=== PATIENT | female | born 2000 ===

== ENCOUNTER 2023-03-12 18:16 | Emergency (ER) | payer BC, SELFPAY ==
[2023-03-12 18:24] VITALS: BP 138/74; PULSE 122; RESP 16; TEMP 37.2; O2SAT 100; BMI 21.6
[2023-03-12 18:57] LABS: Bacteria Urine None Seen; Culture Indicated Urine Cult Not Indicated; RBC Urine 1-5/HPF (0-5/HPF); Squamous Epithelial Cell Urine None Seen (0-5/HPF); WBC Urine None Seen (0-5/HPF)
[2023-03-12 19:05] LABS: Add Manual Diff / Slide Review NO; Basophils Absolute Auto 0 /uL (0-100); Basophils Percent Auto 0.5 % (0-2); Eosinophils Absolute Auto 100 /uL (0-450); Eosinophils Percent Auto 0.6 % (2-4); Hematocrit 39.4 % (36-46); Hemoglobin 13.9 g/dL (12.0-16.0); Lymphocytes Absolute Auto 1600 /uL (1100-4500); Lymphocytes Percent Auto 16.7 % (25-40); Mean Corpuscular HGB Conc 35.2 % (30-36); Mean Corpuscular Hemoglobin 31.2 PG (26-34); Mean Corpuscular Volume 88.5 fL (80-100); Monocytes Absolute Auto 500 /uL (0-900); Monocytes Percent Auto 5.7 % (3-14); Neutrophils Absolute Auto 7100 /uL (1500-7000); Neutrophils Percent Auto 76.5 % (50-75); Platelet Count 297 X10^3/uL (150-400); Red Blood Cell Count 4.45 X10^6/uL (4.0-5.2); Red Cell Distribution Width 12.6 % (11.6-14.8); White Blood Cell Count 9.3 X10^3/uL (4.5-11.0)
[2023-03-12 19:06] LABS: Alanine Aminotransferase 21 IU/L (<35); Albumin 4.8 g/dL (3.5-5.0); Albumin Globulin Ratio 1.3 (1.0-2.8); Alkaline Phosphatase 84 U/L (38-126); Aspartate Aminotransferase 30 IU/L (14-36); BUN Creatinine Ratio 16.9 (6-22); Bilirubin Total 0.6 mg/dL (0.2-1.3); Blood Urea Nitrogen 12 mg/dL (7-17); Calcium 9.3 mg/dL (8.4-10.2); Carbon Dioxide 27 mmol/L (22-32); Chloride 102 mmol/L (98-107); Estimated Glomerular Filt Rate > 60 mL/min (>60); Globulin 3.6 g/dL (1.7-4.1); Glucose 105 mg/dL (70-100); HEMOLYSIS 41 (0-50); Lipase 56 U/L (23-300); Potassium 3.2 mmol/L (3.4-5.1); Sodium 138 mmol/L (137-145); Total Protein 8.4 g/dL (6.3-8.2)
[2023-03-12] MEDS: ACETAMINOPHEN 325 MG TABLET 650 MG PO (20:16)
--- NOTE | 2023-03-12 20:22 | DI.US.S_ITS ---
PROCEDURE: US PELVIC COMPLETE INDICATIONS: CYST; INCREASING PAIN TECHNIQUE: Real-time scanning was performed of the pelvic organs, with image documentation. Additional endovaginal scanning was necessary due to incomplete visualization of the adnexal and endometrial structures by transabdominal scanning. COMPARISON: None. FINDINGS: Uterus: Uterus is anteverted and measures 5.1 x 2.6 x 4.1 cm. Endometrium measures up to 0.9 cm. Ovaries: The right ovary measures 4.6 x 3.5 x 4.2 cm, with a calculated ovarian volume of 35.5 cc. The left ovary measures 1.7 x 2.8 x 1.1 cm, with a calculated ovarian volume of 2.8 cc. The ovaries have a normal sonographic appearance. Less than 12 follicles can be seen in each ovary. No adnexal masses. There is a cyst within the right ovary measuring 3.8 x 4.2 x 2.8 cm with thick internal septations and eccentric nodular soft tissue components or debris. No internal vascularity on color Doppler interrogation. There is patent arterial flow demonstrated within the ovaries bilaterally. Other: There is a small amount of pelvic free fluid which appears within physiologic limits. IMPRESSION: 1. Complex right ovarian cyst measuring up to 4.2 cm with internal septations and eccentric solid nodular components or debris. Recommend follow-up ultrasound in 6 weeks to demonstrate resolution. 2. No definite evidence of ovarian torsion. We strive to produce accurate, complete, and clear reports of imaging services. To assist us in improving patient care, this report was composed using standard report templates and voice recognition software. Therefore, it may contain abnormal punctuation, insertions and/or omissions. Occasional wrong-word or sound-alike substitutions may occur. Though we review the report and make efforts to correct it, we do recommend that the report be read carefully in proper context to recognize any text inaccuracies. Dictated by: Josh Peña M.D. on 03/12/2023 at 22:13 Approved by: Josh Peña M.D. on 03/12/2023 at 22:16
[2023-03-12 21:18] VITALS: BP 135/77; PULSE 95; O2SAT 98
[2023-03-12 21:30] VITALS: BP 128/73; PULSE 94; O2SAT 99
[2023-03-12 22:00] VITALS: BP 130/74; PULSE 99; O2SAT 99
[2023-03-12 22:30] VITALS: BP 131/77; PULSE 83; O2SAT 99
--- NOTE | 2023-03-12 23:10 | ED.FEMALEGU ---
HPI - Female Genitourinary General Chief complaint: Abdominal Pain Stated complaint: poss ovarian cyst/pain/dizzy Time Seen by Provider: 03/12/23 23:09 Source: patient Mode of arrival: Ambulatory History of Present Illness HPI Narrative: Patient is a 22-year-old female who has a history of a right ovarian cyst and depression presenting today with severe right-sided pain. She reports that she is had some ongoing right-sided pain she had an ultrasound about 4 weeks ago with PCP which showed a complicated right ovarian cyst she is worried that it may have ruptured. She got sudden onset doubled over in pain. She took some ibuprofen at home and received Tylenol prior to my evaluation she reports it is feeling a little bit better. No fever chills no flank pain. She is able to walk. Related Data Previous Rx's Medication Instructions Recorded hydrocodone 5 mg-acetaminophen 325 1 tab PO Q6H PRN pain #10 tabs 03/12/23 mg tablet Allergies Allergy/AdvReac Type Severity Reaction Status Date / Time Penicillins Allergy Verified 03/12/23 18:24 Review of Systems Review of Systems ROS Unobtainable: All systems reviewed & are unremarkable except as noted in HPI and below Patient History alcohol intake frequency: holidays/special occasions only Substance Use Type: does not use Exam Initial Vital Signs Initial Vital Signs: Vital Signs Temperature 98.9 F 03/12/23 18:24 Pulse Rate 122 H 03/12/23 18:24 Respiratory Rate 16 03/12/23 18:24 Blood Pressure 138/74 03/12/23 18:24 Pulse Oximetry 100 03/12/23 18:24 Oxygen Delivery Method Room Air 03/12/23 18:24 GENERAL: Alert highly anxious 22-year-old female and in no acute distress. HEENT: Head atraumatic,EOMI, pupils reactive, face symmetric, moist mucous membranes CARDIOVASCULAR: Regular rate and rhythm without murmurs, rubs or gallops. RESPIRATORY: Breath sounds equal bilaterally, no wheezes rales or rhonchi. ABDOMEN: Soft, mild right-sided pain no guarding no tenderness no periumbilical pain diaper quadrant pain : No CVA tenderness EXTREMITIES: Normal range of motion, no clubbing or edema. Neurovascularly intact NEUROLOGICAL: Alert and oriented x4. SKIN: Warm, dry, no laceration, no petechiae, no rashes or lesions. Course Orders Ordered: ED Orders 03/12/23 18:37 Complete Blood Count AUTO DIFF Stat Comprehensive Metabolic Panel Stat Lipase Stat Urine Microscopic Stat 03/12/23 20:22 US pelvic complete Stat Discontinued Medications Acetaminophen (Acetaminophen 325 Mg Tablet) 650 mg PO NOW ONE Stop: 03/12/23 20:13 Last Admin: 03/12/23 20:16 Dose: 650 mg Documented By: MARINA Acetaminophen (Acetaminophen 325 Mg Tablet) 325 mg PO Q6H PRN PRN Reason: Fever/Mild Pain (1-3) Hydrocodone Bitart/Acetaminophen (Hydrocodone/Acet 5/325 Prepack) 1 bottle MISC SEEINSTR ONE Stop: 03/12/23 23:27 Last Admin: 03/12/23 23:34 Dose: 1 bottle Documented By: GASPER Ondansetron HCl (Ondansetron 4 Mg/2 Ml Inj) 4 mg IV NOW PRN PRN Reason: Nausea And Vomiting Vital Signs Vital signs: Vital Signs - 8 hr 03/12/23 18:24 03/12/23 21:18 03/12/23 21:18 Temperature 98.9 F Pulse Rate 122 H 95 H Respiratory Rate 16 Blood Pressure 138/74 135/77 Pulse Oximetry 100 98 Oxygen Delivery Method Room Air 03/12/23 21:30 03/12/23 21:30 03/12/23 22:00 Temperature Pulse Rate 94 H Respiratory Rate Blood Pressure 128/73 130/74 Pulse Oximetry 99 Oxygen Delivery Method 03/12/23 22:00 03/12/23 22:30 03/12/23 22:30 Temperature Pulse Rate 99 H 83 Respiratory Rate Blood Pressure 131/77 Pulse Oximetry 99 99 Oxygen Delivery Method 03/12/23 23:33 Temperature 97.8 F Pulse Rate 75 Respiratory Rate 16 Blood Pressure 120/75 Pulse Oximetry 98 Oxygen Delivery Method Room Air MDM - Female Genitourinary Lab Data 03/12/23 18:37 03/12/23 18:37 Labs: Lab Results 03/12/23 03/12/23 03/12/23 Range/Units 18:37 18:37 18:37 WBC 9.3 (4.5-11.0) X10^3/uL RBC 4.45 (4.0-5.2) X10^6/uL Hgb 13.9 (12.0-16.0) g/dL Hct 39.4 (36-46) % MCV 88.5 (80-100) fL MCH 31.2 (26-34) PG MCHC 35.2 (30-36) % RDW 12.6 (11.6-14.8) % Plt Count 297 (150-400) X10^3/uL Neut % (Auto) 76.5 H (50-75) % Lymph % (Auto) 16.7 L (25-40) % [place] % (Auto) 5.7 (3-14) % Eos % (Auto) 0.6 L (2-4) % Baso % (Auto) 0.5 (0-2) % Neut # (Auto) 7100 H (1903-6621) /uL Lymph # (Auto) 1600 (8020-2585) /uL [place] # (Auto) 500 (0-900) /uL Eos # (Auto) 100 (0-450) /uL Baso # (Auto) 0 (0-100) /uL Sodium 138 (137-145) mmol/L Potassium 3.2 L (3.4-5.1) mmol/L Chloride 102 (98-107) mmol/L Carbon Dioxide 27 (22-32) mmol/L BUN 12 (7-17) mg/dL Creatinine 0.71 (0.52-1.04) mg/dL Estimated GFR > 60 (>60) mL/min BUN/Creatinine Ratio 16.9 (6-22) Glucose 105 H (70-100) mg/dL Calcium 9.3 (8.4-10.2) mg/dL Total Bilirubin 0.6 (0.2-1.3) mg/dL AST 30 (14-36) IU/L ALT 21 (<35) IU/L Alkaline Phosphatase 84 (38-126) U/L Total Protein 8.4 H (6.3-8.2) g/dL Albumin 4.8 (3.5-5.0) g/dL Globulin 3.6 (1.7-4.1) g/dL Albumin/Globulin Ratio 1.3 (1.0-2.8) Lipase 56 (23-300) U/L Urine RBC 1-5/hpf (0-5/HPF) Urine WBC None seen (0-5/HPF) Ur Squamous Epith Cells None seen (0-5/HPF) Urine Bacteria None seen (None) Ur Culture Indicated? Cult not indicated Point of Care Testing Test Results Negative Glucose POC 97 Urine Dip Bedside Urine Glucose Negative Bedside Urine Bilirubin - Negative Bedside Urine Ketone - Negative Urine Specific [place] 1.005 Bedside Urine Occult Blood +++ Bedside Urine pH 6.0 Bedside Urine Protein - Negative Bedside Urine Urobilinogen - Negative Bedside Urine Nitrite - Negative Bedside Urine Leukocytes - Negative Esterase Imaging Data US - DIRECTOR GEOTHERMAL OPERATIONS: Radiologist's Impression: PROCEDURE:? US PELVIC COMPLETE ? INDICATIONS:? CYST; INCREASING PAIN ? TECHNIQUE:? Real-time scanning was performed of the pelvic organs, with image documentation.? Additional endovaginal scanning was necessary due to incomplete visualization of the adnexal and endometrial structures by transabdominal scanning.? ? COMPARISON:? None. ? FINDINGS:? ?? Uterus:? Uterus is anteverted and measures 5.1 x 2.6 x 4.1 cm.? Endometrium measures up to 0.9 cm. ? Ovaries:? The right ovary measures 4.6 x 3.5 x 4.2 cm, with a calculated ovarian volume of 35.5 cc. The left ovary measures 1.7 x 2.8 x 1.1 cm, with a calculated ovarian volume of 2.8 cc. The ovaries have a normal sonographic appearance. Less than 12 follicles can be seen in each ovary.? No adnexal masses.? There is a cyst within the right ovary measuring 3.8 x 4.2 x 2.8 cm with thick internal septations and eccentric nodular soft tissue components or debris.? No internal vascularity on color Doppler interrogation.? There is patent arterial flow demonstrated within the ovaries bilaterally. ? Other:? There is a small amount of pelvic free fluid which appears within physiologic limits. ? ? IMPRESSION:? ? 1. Complex right ovarian cyst measuring up to 4.2 cm with internal septations and eccentric solid nodular components or debris.? Recommend follow-up ultrasound in 6 weeks to demonstrate resolution. ? 2. No definite evidence of ovarian torsion.? ? ? We strive to produce accurate, complete, and clear reports of imaging services. To assist us in improving patient care, this report was composed using standard report templates and voice recognition software. Therefore, it may contain abnormal punctuation, insertions and/or omissions. Occasional wrong-word or sound-alike substitutions may occur. Though we review the report and make efforts to correct it, we do recommend that the report be read carefully in proper context to recognize any text inaccuracies. ? ? Dictated by: Josh Peña M.D. on 03/12/2023 at 22:13 ? ? [facility] Narrative Medical decision making narrative: Patient 22-year-old female with a known right ovarian cyst presents today with sudden onset worsening right lower quadrant pain. Pain has subsided she continues to have a right ovarian cyst without evidence of ovarian torsion. She is had this pain ongoing for about a month. She is able to ambulate no leukocytosis electrolyte abnormality and she is not . At this time low suspicion for appendicitis she continues to have a right ovarian cyst which measures 4.2 cm she reports that it previously was 4.6. She is on her menstrual cycle now which might be exacerbating her pain. I do not see need for CT her for right lower quadrant pain for appendicitis although we did talk about it. However I do not think likely at this time. She is follow-up appointment with OBGYN in about 2 weeks. She is given pain pills she is offered further IV medications but denies at this time. Reasonable for discharge and return as needed. Discharge Plan Departure Patient Disposition: Home Clinical Impression: Ovarian cyst Instructions: DI for Ovarian Cyst Activity Restrictions/Additional Instructions: *You have been diagnosed with right ovarian complex cyst *What to do: At this time please follow-up with OBGYN and have repeat ultrasound. *Continue to take medications as directed Ibuprofen 600 mg every 6 hours if needed for [id number] pain [place] 1 tablet every 6 hours if needed for severe pain *Follow up with your primary care provider in 2-3 days or call [phone] *Return to ER if you should have increasing pain persistent vomiting fever or any new, worsening or concerning symptoms CONTROLLED SUBSTANCE DISCHARGE (Narcotoic/benzodiazepine/Flexeril/Phenergan) 1. You have been prescribed narcotic medications, it does have acetaminophen/Tylenol/paracetamol in it, DO NOT TAKE MORE THAN 4,00mg in 24 hours of Tylenol. TRAMADOL DOES NOT CONTAIN TYLENOL 2. Please understand that we cannot provide further refills of narcotics, benzodiazepines or controlled substances through the ED and her pain management will need to be through your provider. 3. While on these medications you cannot drive or operate heavy machinery. 4. You cannot sign legal documents or perform any duties such as this. 5. As long as you're taking opiate pain medications he should also be taking a stool softener such as Colace, Dulcolax, MiraLAX or prune juice, to help avoid constipation. Prescriptions: New hydrocodone-acetaminophen 5-325 mg tablet 1 tab PO Q6H PRN (Reason: pain) Qty: 10 0RF Stand Alone Forms: Patient Portal/API
[2023-03-12 23:33] VITALS: BP 120/75; PULSE 75; RESP 16; TEMP 36.6; O2SAT 98
[2023-03-12] MEDS: HYDROCODONE/ACET 5/325 PREPACK 1 BOTTLE MISC (23:34)
== END 2023-03-12 23:41 | disposition home or self-care (01) ==
PROVIDERS: Emergency Provider Emergency Medicine
DX: N83.201 Unspecified ovarian cyst, right side (principal); R42 Dizziness and giddiness
CPT/HCPCS: 76830; 76856; 80053; 81003; 81015; 81025; 82962; 83690; 85025; 93975; 99283; 99284